=== PATIENT | male | born 1975 | race Caucasian/White ===

== ENCOUNTER 2024-03-30 18:09 | Emergency (ER) | payer OTHER, SELFPAY ==
[2024-03-30 18:41] VITALS: BP 175/104; PULSE 62; RESP 16; TEMP 36.5; O2SAT 97; BMI 25.8
--- NOTE | 2024-03-30 19:31 | ED.SKABFB ---
HPI - Skin/Abscess/Foreign Bdy General Time Seen by Provider: 19:31 Date Seen: 03/30/24 Chief complaint: Skin/Abscess/Foreign Body Stated complaint: Apparent infection on face Time Seen by Provider: 03/30/24 19:31 Source: patient and RN notes reviewed Mode of arrival: ambulatory Limitations: no limitations History of Present Illness HPI narrative: This patient is coming in with concern of infection on his right cheek. Started noting swelling of the right cheek on Tuesday. He does have hair growth in that area, there is a hathaway. By Tuesday was significantly painful, did not go to work that morning. He did take a couple aspirin at home. He did squeeze it and some pus came out. It scabbed over and then today broke open more, there is a larger crater that is exposed. The pain has significantly improved since this happened, pain is improved throughout the day. He notes no fevers. Has not been to the doctor for years. Is not aware of any history of MRSA, denies any chronic medical issues but again has not been to the doctor for some time. He is not aware of any chronic skin change in this area prior. MD complaint: abscess/boil Related Data Previous Rx's ?Medication ?Instructions ?Recorded cephalexin 500 mg tablet 500 mg PO TID #20 tabs 03/30/24 Allergies Allergy/AdvReac Type Severity Reaction Status Date / Time No Known Drug Allergies Allergy Verified 03/30/24 18:45 Review of Systems Narrative: As per HPI. Exam Const: Vital Signs, click to edit/add: Vital Signs - 24 hr 03/30/24 18:41 Temperature 97.7 F Pulse Rate [Pulse Oximeter] 62 Respiratory Rate 16 Blood Pressure [Ri ght Upper Arm] 175/104 H Pulse Oximetry 97 Oxygen Delivery Me thod Room Air This 48-year-old male is alert, interactive, no apparent distress. He has facial hair, on the right central cheek area there is erythematous lesion with some central opening/ulceration. I cannot express any further discharge, there is some tissue induration but no fluctuance. Does not seem to be significantly tender. I do take a gloved finger and go inside his mouth along the cheek, there is nothing in the oral cavity but can feel the indurated soft tissue of the cheek, again no fluctuance. There is no significant facial erythema beyond the border of the wound, some serosanguineous to murky yellowish fluid coming from this. Neck is supple, no adenopathy or masses. Lungs are clear, good air entry, no wheezing or crackles. CV regular rate and rhythm, no murmur. Documenting provider has reviewed patient's vital signs: yes Course Course ED Course: Wound culture obtained, patient is aware we will contact him if he needs any change in antibiotics. Pharmacies will be closed at this time, will give him an oral dose of Keflex here and send prescription for further antibiotics and in the morning. We will put gauze with some bacitracin and paper tape over this, he can do this as needed after discharge. Vital Signs Vital signs: Initial Vital Signs Temperature 97.7 F 03/30/24 18:41 Temperature Source Temporal Artery Scan 03/30/24 18:41 Pulse Rate 62 03/30/24 18:41 Respiratory Rate 16 03/30/24 18:41 Blood Pressure 175/104 H 03/30/24 18:41 Blood Pressure Mean 127 H 03/30/24 18:41 Blood Pressure Position Sitting 03/30/24 18:41 Pulse Oximetry 97 03/30/24 18:41 Oxygen Delivery Method Room Air 03/30/24 18:41 Vital Signs Temperature 97.7 F 03/30/24 18:41 Pulse Rate 62 03/30/24 18:41 Respiratory Rate 16 03/30/24 18:41 Blood Pressure 175/104 H 03/30/24 18:41 Pulse Oximetry 97 03/30/24 18:41 Oxygen Delivery Method Room Air 03/30/24 18:41 Temperature 97.7 F 03/30/24 18:41 Pulse Rate 62 03/30/24 18:41 Respiratory Rate 16 03/30/24 18:41 Blood Pressure 175/104 H 03/30/24 18:41 Pulse Oximetry 97 03/30/24 18:41 Oxygen Delivery Method Room Air 03/30/24 18:41 Discharge Plan Discharge Clinical Impression: Abscess of skin or subcutaneous tissue Patient Disposition: Home, Self-Care Condition: Stable Instructions: Abscess (ED) Additional Instructions: Continue with Keflex, next dose due tomorrow morning. Recommend warm compresses as we discussed, do this 3 to 4 times a day through the weekend. Can shower as usual. Would apply a light layer of bacitracin 3 to 4 times a day until the wound is closed. Can use Tylenol or ibuprofen if needed for any discomfort, follow bottle directions for dosing. Recommend recheck this next week in clinic with Dr. Theodore to ensure this wound is improving and does not need further management. If the area is becoming increasingly swollen again, you develop fever with worsening facial infection, do need to return to the ER. Activity Level: Activity as Tolerated Prescriptions: New cephalexin 500 mg tablet 500 mg PO TID Qty: 20 0RF Stand Alone Forms: Promodity Info Instructions
[2024-03-30] MEDS: cephALEXin 500 MG CAPSULE PO (20:28)
[2024-03-30] MEDS: BACITRACIN 0.9 GM PACKET 1 EACH TOPICAL (20:28)
== END 2024-03-30 20:07 | disposition home or self-care (01) ==
PROVIDERS: Emergency Provider Family Medicine
DX: L02.01 Cutaneous abscess of face (principal)
CPT/HCPCS: 87070; 87186; 99283; A9270